=== PATIENT | female | born 1955 ===

== ENCOUNTER 2017-11-26 16:03 | Outpatient (CLI) | payer OTHER ==
--- NOTE | 2017-11-26 18:19 | ULT ---
RIGHT LOWER EXTREMITY VENOUS ULTRASOUND: History: Right lower extremity pain and redness for four days. Technique: Multiplanar grayscale and color doppler images were obtained in a right lower extremity ve nous ultrasound. Spectral analysis of the doppler waveforms were performed. FINDINGS: The right common femoral vein, profunda femoral vein, superficial femoral vein, and popliteal vein ar e normal in appearance without visible thrombus. These vessels demonstrate normal compression, flow, and augmentation. The posterior tibial vein and greater saphenous vein are also patent. IMPRESSION: No evidence of right lower extremity DVT. POS: JUAN FRANCISCO
== END 2017-11-26 16:04 | disposition home or self-care (01) ==
LOC: NAV ULT 16:03
PROVIDERS: ATTEND Family Medicine
DX: I87.2 Venous insufficiency (chronic) (peripheral) (principal)